=== PATIENT | female | born 1975 | race Caucasian/White ===

== ENCOUNTER 2024-02-16 08:11 | Outpatient (CLI) | payer OTHER | END 2024-02-16 08:12 | disposition home or self-care (01) | LOC: CSHMRI 08:11 | PROVIDERS: ATTEND Family Medicine | DX: S46.911A Strain of unspecified muscle, fascia and tendon at shoulder and upper arm level, right arm, initial encounter (principal); S43.421A Sprain of right rotator cuff capsule, initial encounter; S46.111A Strain of muscle, fascia and tendon of long head of biceps, right arm, initial encounter; S43.431A Superior glenoid labrum lesion of right shoulder, initial encounter; M25.411 Effusion, right shoulder; M19.011 Primary osteoarthritis, right shoulder ==